=== PATIENT | female | born 1960 | race Caucasian/White ===

== ENCOUNTER 2020-07-21 14:42 | Observation (INO) | payer BC ==
[2020-07-18 13:13] LABS: BASOPHILS % (AUTO) 1 % (0-1); EOSINOPHILS % (AUTO) 2 % (1-7); LYMPHOCYTES % (AUTO) 27 % (22-44); MEAN CORPUSCULAR HEMOGLOBIN 31.9 pg (27.0-34.8); MEAN CORPUSCULAR HGB CONC 33.5 g/dL (32.4-35.8); MEAN PLATELET VOLUME 8.7 fL (7.4-10.4); MONOCYTES % (AUTO) 8 % (2-9); NEUTROPHILS % (AUTO) 62 % (42-75); PLATELET COUNT 404 x10^3/uL (130-400); RED BLOOD COUNT 4.29 x10^6/uL (3.82-5.3); RED CELL DISTRIBUTION WIDTH 17.3 % (9.6-15.2)
[2020-07-18 13:18] LABS: MD NO
[2020-07-18 13:25] LABS: ALANINE AMINOTRANSFERASE 23 U/L (12-78); ALBUMIN 3.8 g/dL (3.4-5.0); ANION GAP 2 mmol/L (5-15); CALCIUM 8.8 mg/dL (8.5-10.1); CHLORIDE 109 mmol/L (98-107); CREATININE 0.71 mg/dL (0.55-1.02)
[2020-07-18 13:27] LABS: ALKALINE PHOSPHATASE 71 U/L (45-117); BILIRUBIN,TOTAL 0.3 mg/dL (0.2-1.0); TOTAL PROTEIN 7.5 g/dL (6.4-8.2)
[~2020-07-21] VITALS: Ht 167.6 cm; Wt 76.1 kg
[~2020-07-21 14:42] MED LIST: BUPIVACAINE/PF 0.5% ONE; EPINEPHRINE 1 MG/ML, 1ML ONE; GABA-827 PO; HEPARIN 1,000 UNITS/ML, 10ML ONE; PROTAMINE SULFATE 10 MG/ML, 5ML ONE; THROMBIN 20,000 UNIT VIAL TP ONE
[2020-07-21] MEDS ORDERED: motrin PO (15:17)
[2020-07-21] MEDS ORDERED: CHLORHEXIDINE 15 ML UDC PO ONE (15:30)
[2020-07-21] MEDS ORDERED: LACTATED RINGERS 1,000 ML IV SCH (15:30)
[2020-07-21] MEDS ORDERED: D5%-0.45% NACL 1,000 ML IV SCH (15:30)
[2020-07-21] MEDS ORDERED: NEOSTIGMINE 1 MG/ML, 10ML ONE (16:11)
[2020-07-21] MEDS ORDERED: GLYCOPYRROLATE 0.2MG/1ML, 5ML ONE (16:11)
[2020-07-21] MEDS ORDERED: LIDOCAINE 1%, 20ML ONE (16:11)
[2020-07-21] MEDS ORDERED: MIDAZOLAM 1 MG/ML, 2ML ONE (16:26)
[2020-07-21] MEDS ORDERED: FENTANYL PF 250 MCG/5ML ONE (16:27)
[2020-07-21] MEDS ORDERED: PROPOFOL 50 ML ONE (17:36)
[2020-07-21] MEDS ORDERED: MEPERIDINE/PF 50 MG/ML ONE (17:52)
[2020-07-21] MEDS ORDERED: PROPOFOL 10 MG/ML, 20ML ONE (17:53)
[2020-07-21] MEDS ORDERED: DEXAMETHASONE 4 MG/ML, 5ML ONE (17:54)
[2020-07-21] MEDS ORDERED: SUCCINYLCHOLINE 20 MG/ML, 10ML ONE (17:54)
[2020-07-21] MEDS ORDERED: CEFAZOLIN 1,000 MG ONE (17:54)
[2020-07-21] MEDS ORDERED: ROCURONIUM 10MG/ML,5ML ONE (17:54)
[2020-07-21] MEDS ORDERED: ONDANSETRON 2MG/ML, 2ML ONE (17:54)
[2020-07-21] MEDS ORDERED: HYDROmorphone 1 MG/ML, 1ML INJ IVPush PRN (18:00)
[2020-07-21] MEDS ORDERED: PROMETHAZINE 25 MG/ML, 1ML IVPush PRN (18:00)
[2020-07-21] MEDS ORDERED: LABETALOL 5MG/ML, 20ML IV PRN (18:00)
[2020-07-21] MEDS ORDERED: MEPERIDINE/PF 25MG/0.5ML IVPush PRN (18:00)
[2020-07-21] MEDS ORDERED: METHOCARBAMOL 1,000 MG in DEXTROSE 5% 100 ML IV PRN (18:00)
[2020-07-21] MEDS ORDERED: LORazepam 2 MG/ML, 1ML IVPush PRN (18:00)
[2020-07-21] MEDS ORDERED: OXYcodone 5 MG/5 ML ORAL.SOL UDC PO PRN (18:00)
[2020-07-21] MEDS ORDERED: FENTANYL PF 100 MCG/2ML IV PRN (18:00)
[2020-07-21] MEDS ORDERED: ONDANSETRON 2MG/ML, 2ML IVPush PRN ×2 (18:00→18:30)
[2020-07-21] MEDS ORDERED: ACETAMINOPHEN 325 MG TABLET PO PRN (18:00)
[2020-07-21] MEDS ORDERED: hydrALAzine 20 MG/ML, 1ML IV PRN (18:00)
[2020-07-21] MEDS ORDERED: EPHEDRINE 50 MG/ML, 1ML IVPush PRN (18:00)
[2020-07-21] MEDS: LACTATED RINGERS 1,000 ML IV SCH ×2 (18:30→22:08)
[2020-07-21] MEDS ORDERED: ACETAMINOPHEN 650 MG/20.3 ML UDC PO PRN (18:30)
[2020-07-21] MEDS ORDERED: OMNIPAQUE 350 MG/ML, 100ML BOTTLE ONE (19:00)
[2020-07-21 19:40] VITALS: BP 126/78
[2020-07-21] MEDS: HYDROcodone/APAP 5/325 TABLET PO PRN (20:41)
[2020-07-21] MEDS ORDERED: HYDR-2214 PO (22:39)
[2020-07-22 01:05] VITALS: BP 106/58
[2020-07-22] MEDS: HYDROcodone/APAP 5/325 TABLET PO PRN (01:28)
[2020-07-22 05:07] VITALS: BP 105/64
[2020-07-22 06:59] VITALS: BP 108/69
[2020-07-22] MEDS ORDERED: ASPI81TA45 PO (08:58)
[2020-07-22] MEDS ORDERED: ATOR80TA PO (08:59)
[2020-07-22] MEDS ORDERED: GABAPENTIN 400 MG CAPSULE PO SCH (09:00)
== END 2020-07-22 10:55 | disposition home or self-care (01) ==
LOC: OUT 14:42 → ORIP 18:08 → 4NE 19:37 → DCLOUNGE 07-22 10:43
PROVIDERS: ADMIT Surgery; ATTEND Surgery
DX: I70.223 Atherosclerosis of native arteries of extremities with rest pain, bilateral legs (principal); Z20.822 Contact with and (suspected) exposure to COVID-19; I74.5 Embolism and thrombosis of iliac artery; I74.19 Embolism and thrombosis of other parts of aorta; S91.301D Unspecified open wound, right foot, subsequent encounter; R91.1 Solitary pulmonary nodule; Z88.0 Allergy status to penicillin; Z87.891 Personal history of nicotine dependence; Z79.899 Other long term (current) drug therapy; X58.XXXD Exposure to other specified factors, subsequent encounter
CPT/HCPCS: 35226; 36415; 37220; 71046; 71260; 75630; 80053; 85025; 93005; C1725; C1769; C1894; G0378; J0171; J0330; J0690; J1100; J1644; J2175; J2250; J2405; J2704; J2710; J2720; J3010; J3490; Q9967; S0020; U0003; U0005

== ENCOUNTER → 2020-08-10 | Outpatient (CLI) | payer BC ==
[~2020-08-10] MED LIST changes: +ASPI81TA45 PO; +ATOR80TA PO; -BUPIVACAINE/PF 0.5% ONE; -EPINEPHRINE 1 MG/ML, 1ML ONE; -HEPARIN 1,000 UNITS/ML, 10ML ONE; +HYDR-2214 PO; -PROTAMINE SULFATE 10 MG/ML, 5ML ONE; -THROMBIN 20,000 UNIT VIAL TP ONE; +motrin PO
== END | disposition home or self-care (01) ==
LOC: PETCFH 09:23
PROVIDERS: ATTEND Internal Medicine
DX: R91.8 Other nonspecific abnormal finding of lung field (principal)
CPT/HCPCS: 78815; A9552

== ENCOUNTER 2020-08-18 10:32 | Day surgery (SDC) | payer BC ==
[~2020-08-18] VITALS: Ht 167.6 cm; Wt 78.5 kg
[2020-08-18] MEDS ORDERED: ATOR-2 PO (11:56)
[2020-08-18] MEDS ORDERED: ASPI-963 PO (11:56)
[2020-08-18] MEDS ORDERED: PLEASE ENTER HEIGHT AND WEIGHT MC SCH (12:00)
[2020-08-18] MEDS ORDERED: CHLORHEXIDINE 15 ML UDC PO ONE (12:00)
[2020-08-18 12:18] VITALS: BP 112/72
[2020-08-18] MEDS ORDERED: FENTANYL PF 100 MCG/2ML ONE (12:24)
[2020-08-18] MEDS ORDERED: MIDAZOLAM 1 MG/ML, 2ML ONE (12:24)
[2020-08-18] MEDS ORDERED: LACTATED RINGERS 1,000 ML IV SCH (12:30)
[2020-08-18] MEDS ORDERED: ONDANSETRON 2MG/ML, 2ML ONE (12:58)
[2020-08-18] MEDS ORDERED: PROPOFOL 10 MG/ML, 50ML ONE (12:58)
[2020-08-18] MEDS ORDERED: ROCURONIUM 10 MG/ML,10ML ONE (12:58)
[2020-08-18] MEDS ORDERED: DEXAMETHASONE 4 MG/ML, 1ML ONE (12:58)
[2020-08-18] MEDS ORDERED: PROPOFOL 10 MG/ML, 20ML ONE (12:58)
[2020-08-18] MEDS ORDERED: SUCCINYLCHOLINE 20 MG/ML, 10ML ONE (12:58)
[2020-08-18] MEDS ORDERED: PHENYLEPHRINE 10 MG/ML ONE (12:58)
[2020-08-18] MEDS ORDERED: MEPERIDINE/PF 25MG/0.5ML IVPush PRN (13:00)
[2020-08-18] MEDS ORDERED: hydrALAzine 20 MG/ML, 1ML IV PRN (13:00)
[2020-08-18] MEDS ORDERED: HALOPERIDOL 5 MG/ML IV PRN (13:00)
[2020-08-18] MEDS ORDERED: METOCLOPRAMIDE 5 MG/ML, 2ML IVPush PRN (13:00)
[2020-08-18] MEDS ORDERED: HYDROmorphone 1 MG/ML, 1ML INJ IVPush PRN (13:00)
[2020-08-18] MEDS ORDERED: EPHEDRINE 50 MG/ML, 1ML IVPush PRN (13:00)
[2020-08-18] MEDS ORDERED: FENTANYL PF 100 MCG/2ML IV PRN (13:00)
[2020-08-18] MEDS ORDERED: ONDANSETRON 2MG/ML, 2ML IVPush PRN (13:00)
[2020-08-18] MEDS ORDERED: DIPHENHYDRAMINE 50 MG/ML, 1ML IVPush PRN (13:00)
[2020-08-18] MEDS ORDERED: METOPROLOL 1 MG/ML, 5ML IV PRN (13:00)
[2020-08-18] MEDS ORDERED: OXYcodone 5 MG/5 ML ORAL.SOL UDC PO PRN (13:00)
[2020-08-18] MEDS ORDERED: PROMETHAZINE 25 MG/ML, 1ML IVPush PRN (13:00)
[2020-08-18] MEDS ORDERED: LABETALOL 5MG/ML, 20ML IV PRN (13:00)
[2020-08-18] MEDS ORDERED: DIAZEPAM 5 MG/ML, 2ML IVPush PRN (13:00)
[2020-08-18] MEDS ORDERED: ACETAMINOPHEN 325 MG TABLET PO PRN (13:00)
== END 2020-08-18 15:00 | disposition home or self-care (01) ==
LOC: OUT 10:32
PROVIDERS: ATTEND Internal Medicine
DX: R59.1 Generalized enlarged lymph nodes (principal); R91.8 Other nonspecific abnormal finding of lung field; I25.10 Atherosclerotic heart disease of native coronary artery without angina pectoris; F12.90 Cannabis use, unspecified, uncomplicated; Z88.0 Allergy status to penicillin; Z20.822 Contact with and (suspected) exposure to COVID-19; Z87.891 Personal history of nicotine dependence; Z72.89 Other problems related to lifestyle; Z79.82 Long term (current) use of aspirin; Z79.899 Other long term (current) drug therapy
CPT/HCPCS: 31652; 87635; 88173; 88305; J0330; J1100; J2250; J2370; J2405; J2704; J3010; J7120; 31622

== ENCOUNTER → 2020-12-07 | Outpatient (CLI) | payer BC | END | disposition home or self-care (01) | LOC: CFH 13:17 | PROVIDERS: ATTEND Internal Medicine | DX: R91.8 Other nonspecific abnormal finding of lung field (principal); I70.0 Atherosclerosis of aorta; M51.34 Other intervertebral disc degeneration, thoracic region ==